=== PATIENT | female | born 1985 | race Caucasian/White ===

== ENCOUNTER 2018-01-06 06:13 | Inpatient (IN) | payer OTHER ==
[2018-01-06] MEDS ORDERED: Ondansetron HCl/PF 4 MG/2 ML Vial IVP PRN ×2 (07:22→14:54)
[2018-01-06] MEDS ORDERED: Promethazine HCl 25 MG/ML VIAL IM PRN (07:22)
[2018-01-06] MEDS ORDERED: NS / Oxytocin 40 units/1000ml 1,000 ML IV PRN (07:22)
[2018-01-06] MEDS ORDERED: Lidocaine 1% (PF) 30 ML VIAL SC PRN (07:22)
[2018-01-06] MEDS ORDERED: Lactated Ringer's 1,000 ML IV SCH ×2 (07:22)
[2018-01-06] MEDS ORDERED: Butorphanol Tartrate 1 MG/ML VIAL SLOW IVP PRN (07:22)
[2018-01-06] MEDS ORDERED: NS w/ Oxytocin 10 units 500 ML IV SCH (07:22)
[2018-01-06] MEDS ORDERED: HYDROcodone/Acetaminophen 5/325 mg Tablet PO PRN ×2 (07:22)
[2018-01-06 07:30] LABS: Hemoglobin 13.6 g/dL (12.0-16.0); Mean Corpuscular HGB CONC 35.3 g/dL (32.0-36.0); Mean Corpuscular Hemoglobin 31.1 pg (27.0-31.0); Mean Corpuscular Volume 88.2 fL (78.0-98.0); Mean Platelet Volume 10.1 fL (7.4-10.4); Platelet Count 211 thou/uL (130-400); RBC Distribution Width 11.6 % (11.5-14.5); Red Blood Cell (RBC) Count 4.38 mill/uL (4.20-5.40); White Blood Cell (WBC) Count 10.3 thou/uL (4.8-10.8)
[2018-01-06 07:36] VITALS: BMI 46.5
[2018-01-06 08:08] LABS: Syphilis Antibody Nonreactive (Nonreactive); Syphilis Antibody Index 0.03 S/CO (<1.00 Non-Reactive)
[2018-01-06 08:09] LABS: HBSAg Index 0.16 S/CO (0-0.99); Hep B Surf Ag Non-Reactive S/CO (NonReactive)
[2018-01-06] MEDS ORDERED: DISCONTINUE ALL PREVIOUS NARCOTICS FS SCH (10:15)
[2018-01-06] MEDS ORDERED: Bupivacaine 0.5% 20 ML, fentaNYL Citrate/PF 400 MCG in Sodium Chloride 0.9% 72 ML EPIDURAL SCH (10:15)
[2018-01-06] MEDS ORDERED: Misoprostol 200 MCG TAB VAG PRN (14:54)
[2018-01-06] MEDS ORDERED: Benzocaine/Menthol 20-0.5% 60 ML CAN TOP PRN (14:54)
[2018-01-06] MEDS ORDERED: Milk Of Magnesia 30 ML UDCUP PO PRN (14:54)
[2018-01-06] MEDS ORDERED: traMADol HCl 50 MG TAB PO PRN (14:54)
[2018-01-06] MEDS ORDERED: diphenhydrAMINE 25 MG CAP PO PRN (14:54)
[2018-01-06] MEDS ORDERED: Adacel (T-DAP) 0.5 ML VIAL IM ONE (14:54)
[2018-01-06] MEDS ORDERED: Lanolin Ointment 7 GM TUBE TOP PRN (14:54)
[2018-01-06] MEDS ORDERED: Zolpidem Tartrate 5 MG TAB PO PRN (14:54)
[2018-01-06] MEDS ORDERED: Preparation H Ointment 28 GM TUBE PR PRN (14:54)
[2018-01-06] MEDS ORDERED: Bisacodyl 10 MG SUPP PR PRN (14:54)
--- NOTE | 2018-01-06 15:01 | PDOC.OPDEL ---
OB Operative/Delivery Note Delivery Dr/Surgeon: Altagracia Pre-Delivery Diagnosis: medically indicated induction Procedure/Post Delivery Dx: spontaneous vaginal delivery Weeks gestation: 38 Anesthesia: none - Findings A Sex: male - 1 min: 9 - 5 min: 9 - Additional Findings/Plan Placenta delivered: spontaneous Repaired Obstetrical Laceration: 1st degree
[2018-01-06] MEDS: Ibuprofen 800 MG TAB PO SCH ×3 (16:41→23:06)
[2018-01-06] MEDS: NS / Oxytocin 40 units/1000ml 1,000 ML IV SCH ×2 (16:43→18:46)
[2018-01-06] MEDS: traMADol HCl 50 MG TAB PO PRN (17:39)
[2018-01-06] MEDS: Ferrous Sulfate 325 MG TAB PO SCH (21:32)
[2018-01-06] MEDS: Docusate Calcium (SURFAK) 240 MG CAP PO SCH (21:52)
[2018-01-07 04:24] VITALS: TEMP 97.8
[2018-01-07 07:16] LABS: Hemoglobin 10.3 g/dL (12.0-16.0)
[2018-01-07] MEDS: Ibuprofen 800 MG TAB PO SCH (09:47)
[2018-01-07] MEDS: Ferrous Sulfate 325 MG TAB PO SCH (09:49)
[2018-01-07] MEDS: Docusate Calcium (SURFAK) 240 MG CAP PO SCH (09:49)
[2018-01-07] MEDS: Prenatal Vitamin 1 TAB PO SCH ×2 (09:49→09:52)
--- NOTE | 2018-01-07 10:37 | PDOC.PP ---
Post Progress Note Post Day #: 1 Subjective: No concerns. No orthostatic symptoms. PO intake tolerated: yes Flatus: yes Ambulation: yes Vital Signs (12 hours) Temp Pulse Resp BP Pulse Ox 01/07/18 04:21 97.8 F 83 16 137/66 99 01/07/18 00:05 97.9 F 70 18 133/86 99 Weight Weight 297 lb - Physical Examination General: NAD Cardiovascular: no m/r/g, RRR Respiratory: clear to auscultation bilaterally, non-labored breathing Abdominal: + bowel sounds, lochia, no distention, appropriately TTP Result Diagrams: 01/07/18 06:50 Additional Labs: Post Labs Blood Type B POSITIVE 01/06/18 06:55 Hep Bs Antigen Non-Reactive S/CO (NonReactive) 01/06/18 06:55 - Assessment/Plan post day 1--blood pressure normalized. Asymptomatic anemia. Discharge home. follow up in 6 weeks. Patient will check blood [id number] this week to make sure normotensive.
[2018-01-07] MEDS: traMADol HCl 50 MG TAB PO PRN (12:15)
[2018-01-07 12:20] VITALS: BP 129/77
== END 2018-01-07 16:30 | disposition home or self-care (01) | DRG 775 ==
LOC: L&D 06:13 → 3SE 20:55
PROVIDERS: ADMIT Obstetrics & Gynecology; ATTEND Obstetrics & Gynecology
PROC: 10E0XZZ Delivery of Products of Conception, External Approach (ICD-10-PCS; principal; 2018-01-06)
PROC: 0HQ9XZZ Repair Perineum Skin, External Approach (ICD-10-PCS; 2018-01-06)
PROC: 10907ZC Drainage of Amniotic Fluid, Therapeutic from Products of Conception, Via Natural or Artificial Opening (ICD-10-PCS; 2018-01-06)
PROC: 3E033VJ Introduction of Other Hormone into Peripheral Vein, Percutaneous Approach (ICD-10-PCS; 2018-01-06)
DX: O13.4 Gestational [pregnancy-induced] hypertension without significant proteinuria, complicating childbirth (principal); O70.0 First degree perineal laceration during delivery; Z3A.38 38 weeks gestation of pregnancy; Z37.0 Single live birth; O69.81X0 Labor and delivery complicated by cord around neck, without compression, not applicable or unspecified
CPT/HCPCS: 36415; 51702; 85014; 85018; 85027; 86780; 86850; 86900; 86901; 87340; J2001; J3010; J3490; J7050